=== PATIENT | female | born 1990 | race Caucasian/White ===

== ENCOUNTER 2022-02-15 19:09 | Emergency (ER) | payer OTHER ==
[2022-02-15] MEDS ORDERED: Acetaminophen 325 MG TAB ONE (19:22)
[2022-02-15] MEDS ORDERED: Acetaminophen 325 MG Suppository ONE (19:22)
[2022-02-15 19:43] LABS: Bilirubin Small (Negative); Blood, Urine Moderate (Negative); Clarity Slightly Cloudy (Clear); Glucose, Urine (Dipstick) Negative (Negative); Ketone, Urine Negative (Negative); Leukocyte Small (Negative); Nitrite Positive (Negative); Protein, Urine (Dipstick) 100 mg/dL (Neg-Trace); Specific Gravity, Urine 1.025 (1.005-1.030); pH, Urine 5.5 (5.0-9.0)
[2022-02-15 19:45] LABS: Bacteria/HPF 2+ HPF (None Seen); Mucous/LPF 1+ LPF (<2+); Squamous Epithelial 0-3 HPF (0-3)
[2022-02-15 19:46] LABS: Pregnancy Test - Urine (BHCG) Negative (Negative); Pregu Control Background? CLEAR/WHITE (CLR/WHITE); Pregu Control Bar Appear? YES (CONTROL BAR); Specific Gravity 1.025 (1.002-1.036)
[2022-02-15] MEDS ORDERED: Lidocaine 1% PF 5 ML VIAL ONE (19:57)
[2022-02-15] MEDS ORDERED: cefTRIAXone\\ROCEPHIN 1 GM VIAL ONE (19:57)
== END 2022-02-15 20:15 | disposition home or self-care (01) ==
LOC: BURERS 19:09
DX: N39.0 Urinary tract infection, site not specified (principal)
CPT/HCPCS: 81003; 81015; 81025; 96372; 99283; J0696

== ENCOUNTER 2023-04-17 21:47 | Emergency (ER) | payer OTHER, SELFPAY ==
[2023-04-17] MEDS ORDERED: Morphine 10 MG/ML VIAL ONE (22:32)
[2023-04-17] MEDS ORDERED: Ondansetron ODT 4 MG TAB ONE (22:32)
== END 2023-04-17 22:34 | disposition home or self-care (01) ==
LOC: BURERS 21:47
DX: M54.50 Low back pain, unspecified (principal); X50.0XXA Overexertion from strenuous movement or load, initial encounter
CPT/HCPCS: 96372; 99283; J2270; Q0162